=== PATIENT | male | born 1950 ===

== ENCOUNTER 2020-11-05 17:40 | Observation (INO) ==
[2020-11-05] MEDS ORDERED: ASPIRIN 325 MG TABLET PO STA (18:09)
[2020-11-05] MEDS ORDERED: NITROGLYCERIN SL 0.4 MG TABLET SL PRN (18:09)
[2020-11-05 18:27] LABS: Basophils # 0.1 10*3/uL (0.0-0.2); Basophils % 0.7 % (0.0-0.8); Eosinophils # 0.4 10*3/uL (0.0-0.87); Eosinophils % 4.1 % (0.00-10.9); Hematocrit 44.9 VOL% (42.0-52.0); Immature Granulocytes % 0.5 %; Immature Granulocytes Absolute 0.04 #; Lymphocytes # 2.7 10*3/uL (1.4-4.0); Lymphocytes % 30.8 % (21.2-54.2); Mean Corpuscular HGB Conc 35.6 GM/DL (32-36); Mean Corpuscular Volume 88.9 FL (87-102); Mean Platelet Volume 13.6 FL (9.6-12.0); Monocytes % 11.3 % (1.7-12.7); Neutrophils % 52.6 % (38.7-73.9); Platelet Count 149 T/CUMM (130-400); Red Blood Count 5.05 MC/CUMM (3.8-5.5); Red Cell Distribution Width 12.4 % (9.3-17.3); White Blood Count 8.6 T/CUMM (4-12)
[2020-11-05 18:41] LABS: INR 0.9; PT Patient Result 10.5 SECS (10.5-12.0)
[2020-11-05 18:43] LABS: Bilirubin,Total 0.8 MG/DL (0.2-1.0); Calcium 8.9 MG/DL (8.5-10.1); Osmolality,Calculated 281.3 MOS/KG (273-304); Potassium 4.1 MMOL/L (3.5-5.1); Total Protein 7.2 G/DL (6.4-8.2)
[2020-11-05] MEDS ORDERED: DEXTROSE 50% 25 GM/50 ML VIAL IV PRN (19:52)
[2020-11-05] MEDS ORDERED: GLUCAGON 1 MG VIAL IM PRN (19:52)
[2020-11-05] MEDS ORDERED: ENOXAPARIN 40 MG/0.4 ML SYRINGE SUBCUT SCH (20:00)
[2020-11-06] MEDS: PANTOPRAZOLE 40 MG VIAL IV SCH ×2 (02:12→09:14)
[2020-11-06 03:24] LABS: Basophils # 0.1 10*3/uL (0.0-0.2); Basophils % 0.7 % (0.0-0.8); Eosinophils # 0.4 10*3/uL (0.0-0.87); Eosinophils % 5.3 % (0.00-10.9); Hematocrit 42.4 VOL% (42.0-52.0); Hemoglobin 14.6 GM/DL (14.0-18.0); Immature Granulocytes % 0.3 %; Immature Granulocytes Absolute 0.02 #; Lymphocytes # 2.1 10*3/uL (1.4-4.0); Lymphocytes % 27.6 % (21.2-54.2); Mean Corpuscular HGB Conc 34.4 GM/DL (32-36); Mean Corpuscular Volume 89.8 FL (87-102); Neutrophils % 53.1 % (38.7-73.9); Platelet Count 125 T/CUMM (130-400); Red Blood Count 4.72 MC/CUMM (3.8-5.5); Red Cell Distribution Width 12.5 % (9.3-17.3); White Blood Count 7.5 T/CUMM (4-12)
[2020-11-06 03:45] LABS: Calcium 8.6 MG/DL (8.5-10.1); Osmolality,Calculated 281.4 MOS/KG (273-304); Potassium 4.1 MMOL/L (3.5-5.1); Risk Ratio 5.35; Thyroid Stimulating Hormone 3.47 uIU/ml (0.358-3.74)
[2020-11-06] MEDS ORDERED: PNEUMOCOCCAL VACCINE (13 VALENT) 0.5 ML SYRINGE IM ONE (09:17)
[2020-11-06] MEDS ORDERED: ASPIRIN EC 81 MG TABLET PO SCH (11:04)
[2020-11-06 16:06] VITALS: BP 144/78
[2020-11-06] MEDS ORDERED: ATORVASTATIN 40 MG TABLET PO SCH (21:00)
== END 2020-11-06 16:14 | disposition home or self-care (01) ==
LOC: N.ED 17:40 → N.EDINP 17:40 → SUATTDRO 19:52 → N.EDINP 22:00 → N.TELES 11-06 02:01
PROVIDERS: ADMIT Internal Medicine Geriatric Medicine; ATTEND Internal Medicine